=== PATIENT | female | born 1965 | race African-American/Black ===

== ENCOUNTER 2018-02-11 11:53 | Emergency (ER) | END 2018-02-11 14:59 | disposition home or self-care (01) ==

== ENCOUNTER 2018-10-01 10:40 | Emergency (ER) | payer OTHER ==
[~2018-10-01] VITALS: Ht 167.6 cm; Wt 98.9 kg
[~2018-10-01 10:40] MED LIST: CIPR500T4 PO; GABA-526 PO; HYDR-4011 PO; IBUP-1542 PO; NAPR-688 PO; NAPR-985 PO; TRAM50TA2 PO
[2018-10-01 10:43] VITALS: Ht 167.6 cm; Wt 98.9 kg
--- NOTE | 2018-10-01 12:49 | ERD ---
ER Documentation Chief Complaint Chief Complaint chest pressure ; SOB ; swelling on both legs; numbness @ right arm HPI 53-year-old female presents the emergency department complaining of swelling on her legs. Patient states that over the last few days she has had increasing swelling of her lower extremities on her right more than her left. She reports no chest pain or shortness of breath. Of note, the triage note indicates that she did have chest pain or shortness of breath when I asked her about this specifically she states that she does not have that. She reports no fevers, chills, trauma. She reports no other cardiac symptoms, pulmonary symptoms or any other complaints. ROS All systems reviewed and are negative except as per history of present illness. Medications Home Meds Active Scripts Hydrocodone/Acetaminophen ([place] 5-325 Tablet) 1 Each Tablet, 1 TAB PO Q6H PRN for PAIN, #20 TAB Prov:RGACE AMBROSIO 02/11/18 Naproxen* (Naprosyn*) 500 Mg Tablet, 500 MG PO BID PRN for PAIN AND/OR INFLAMMATION, #30 TAB Prov:GRACE AMBROSIO 02/11/18 Ciprofloxacin Hcl* (Ciprofloxacin Hcl*) 500 Mg Tablet, 500 MG PO BID for 7 Days, TAB Prov:GRACE AMBROSIO 02/11/18 Ibuprofen* (Motrin*) 600 Mg Tab, 600 MG PO Q6H PRN for PAIN AND OR ELEVATED TEMP, #30 TAB Prov:NIA VELOZ 06/28/16 Reported Medications Tramadol HCl (Tramadol HCl) 50 Mg Tab, 50 MG PO BID PRN for PAIN, TAB 05/12/14 Naproxen* (Naproxen*) 500 Mg Tablet, 500 MG PO BID PRN for PAIN, TAB 05/12/14 Gabapentin* (Gabapentin*) 600 Mg Tablet, 600 MG PO TID, TAB 05/12/14 Allergies Allergies: Coded Allergies: No Known Allergy (Unverified , 05/12/14) PMhx/Soc Medical and Surgical Hx: pt denies Medical Hx, pt denies Surgical Hx History of Surgery: No Hx Neurological Disorder: No Hx Respiratory Disorders: No Hx Cardiac Disorders: No Hx Psychiatric Problems: No Hx Miscellaneous Medical Probl: Yes (RT SHOULDER/LEG INJURY) Hx Alcohol Use: Yes (OCCASIONAL) Hx Substance Use: No Hx Tobacco Use: No Smoking Status: Never smoker Physical Exam Vitals Vital Signs Date Temp Pulse Resp B/P (MAP) Pulse Ox O2 O2 Flow FiO2 Time Delivery Rate 10/01/18 98.1 90 19 200/84 98 10:43 (122) Physical Exam GENERAL: The patient is well developed and appropriate for usual state of health in no apparent distress HEENT: Pupils equal, round, and reactive to light. EOMI. There is no scleral icterus. NECK: C-spine is soft and supple, there is no meningismus. There is no cervical lymphadenopathy. LUNGS: Clear to auscultation bilaterally. There are no rales, wheezes or rhonchi. HEART: Regular rate and rhythm, no murmurs, clicks, rubs or gallops. ABDOMEN: Soft, non-tender, non-distended. There are bowel sounds in all four quadrants. No rebound or guarding. EXTREMITIES: There is no peripheral cyanosis or edema. No focal swelling or erythema. No Homans sign. No significant swelling NEURO: The patient moves all four extremities with 5/5 strength. Cranial nerves II - XII are intact. Normal gait. Alert and oriented SKIN: There is no apparent rash or petechiae. HEME/LYMPHATIC: There is no evidence of excessive bruising or lymphedema. PSYCHIATRIC: The patient does not appear anxious or depressed. Result Diagram: 10/01/18 1138 10/01/18 1138 Results 24 hrs Laboratory Tests Test 10/01/18 11:38 White Blood Count 6.8 10^3/ul Red Blood Count 4.15 10^6/ul Hemoglobin 11.0 g/dl Hematocrit 33.7 % Mean Corpuscular Volume 81.2 fl Mean Corpuscular Hemoglobin 26.5 pg Mean Corpuscular Hemoglobin Concent 32.6 g/dl Red Cell Distribution Width 13.5 % Platelet Count 383 10^3/UL Mean Platelet Volume 8.9 fl Immature Granulocytes % 0.400 % Neutrophils % 63.6 % Lymphocytes % 25.5 % Monocytes % 8.4 % Eosinophils % 1.8 % Basophils % 0.3 % Nucleated Red Blood Cells % 0.0 /100WBC Immature Granulocytes # 0.030 10^3/ul Neutrophils # 4.3 10^3/ul Lymphocytes # 1.7 10^3/ul Monocytes # 0.6 10^3/ul Eosinophils # 0.1 10^3/ul Basophils # 0.0 10^3/ul Nucleated Red Blood Cells # 0.0 10^3/ul Sodium Level 138 mmol/L Potassium Level 3.5 mmol/L Chloride Level 105 mmol/L Carbon Dioxide Level 28 mmol/L Anion Gap 5 Blood Urea Nitrogen 9 mg/dl Creatinine 0.64 mg/dl Est Glomerular Filtrat Rate mL/min > 60 mL/min Glucose Level 105 mg/dl Calcium Level 8.9 mg/dl Troponin I < 0.012 ng/ml Procedures/MDM Patient was taken to a room, seen and evaluated. Comfort measures were initiated. Diagnostic tests were ordered and reviewed. 3 LEAD RHYTHM STRIP: Normal sinus rhythm without ectopy EK lead EKG reviewed by myself: Normal Sinus Rhythm Normal [place] and intervals No ST elevation, depression, or T wave inversion Impression: Normal EKG RADIOLOGY: Reviewed with the radiologist REEVALUATION: 1245: Diagnostic tests were appreciated. These were discussed with the patient. She remained clinically comfortable and stable and seemed appropriate for discharge. [employer] DECISION MAKIN-year-old female presents the emergency department with lower extremity swelling. Her workup shows no evidence of DVT. She has no evidence of congestive heart failure. Her EKG is low risk. She has no indications of heart problems, liver problems, kidney problems causing the swelling. She has no other significant symptoms and otherwise seems to be stable and appropriate for discharge. Departure Diagnosis: Primary Impression: Swelling Condition: Stable Patient Instructions: Peripheral Edema, Bilateral Additional Instructions: See your doctor for follow-up as discussed. Take a copy of your test results, if appropriate, to this follow-up visit. See your doctor or return here if your symptoms do not improve as expected. At any time, please return to the emergency department for any change or worsening in her symptoms. NIA VELOZ Oct 01, 2018 12:49
[2018-10-01] MEDS ORDERED: HYDR12.58 PO (12:53)
[2018-10-01] MEDS ORDERED: GABA-528 PO (12:54)
[2018-10-01 13:20] VITALS: BP 178/78; PULSE 78; RESP 19
== END 2018-10-01 13:30 | disposition home or self-care (01) ==
LOC: E/R 10:40
DX: M79.89 Other specified soft tissue disorders (principal); R07.89 Other chest pain
CPT/HCPCS: 36415; 71045; 80048; 84484; 85025; 93005; 93971; Z7502

== ENCOUNTER 2018-10-21 11:39 | Emergency (ER) | payer OTHER ==
[~2018-10-21] VITALS: Ht 167.6 cm; Wt 100.0 kg
[~2018-10-21 11:39] MED LIST changes: -CIPR500T4 PO; -GABA-526 PO; +GABA-528 PO; -HYDR-4011 PO; +HYDR12.58 PO; -IBUP-1542 PO; -NAPR-688 PO; -NAPR-985 PO; -TRAM50TA2 PO
[2018-10-21 11:45] VITALS: Ht 167.6 cm; Wt 100.0 kg
[2018-10-21] MEDS ORDERED: POTASSIUM CHLORIDE (SR) 20 MEQ TAB PO STA (15:13)
[2018-10-21] MEDS ORDERED: FURO-110 PO (15:39)
--- NOTE | 2018-10-21 15:42 | ERD ---
ER Documentation Chief Complaint Chief Complaint pt is bib self with c/o bilatt leg swelling , HPI 53-year-old female presents with 3-week history of bilateral feet swelling right greater than left. Patient denies any prolonged immobilization or history of trauma. She has a fevers, shortness of breath, calf swelling. She denies any syncope, hemoptysis. Patient has a history of hypertension. She takes a beta- kadie, hydrochlorothiazide and takes Naprosyn for muscular skeletal pain. ROS All systems reviewed and are negative except as per history of present illness. Medications Home Meds Active Scripts Furosemide* (Lasix*) 20 Mg Tablet, 20 MG PO DAILY, #5 TAB Prov:TOMMIE JACOBO MD 10/21/18 Reported Medications Gabapentin* (Gabapentin*) 800 Mg Tablet, 800 MG PO TID, #90 TAB 10/01/18 Hydrochlorothiazide* (Hydrochlorothiazide*) 12.5 Mg Tablet, 12.5 MG PO DAILY, #30 TAB 10/01/18 Allergies Allergies: Coded Allergies: No Known Allergy (Unverified , 10/01/18) PMhx/Soc History of Surgery: No Hx Neurological Disorder: No Hx Respiratory Disorders: No Hx Cardiac Disorders: Yes (HTN) Hx Psychiatric Problems: No Hx Miscellaneous Medical Probl: Yes (RT SHOULDER/LEG INJURY) Hx Alcohol Use: Yes (OCCASIONAL) Hx Substance Use: No Hx Tobacco Use: No Smoking Status: Never smoker FmHx Family History: No diabetes, No coronary disease, No other Physical Exam Vitals Vital Signs Date Temp Pulse Resp B/P (MAP) Pulse Ox O2 O2 Flow FiO2 Time Delivery Rate 10/21/18 98.3 98 16 176/83 98 11:45 (114) Physical Exam Const: No acute distress Head: Atraumatic Eyes: Normal Conjunctiva ENT: Normal External Ears, Nose and Mouth. Neck: Full range of motion. No meningismus. Resp: Clear to auscultation bilaterally Cardio: Regular rate and rhythm, no murmurs Abd: Soft, non tender, non distended. Normal bowel sounds Skin: No petechiae or rashes Back: No midline or flank tenderness Ext: No cyanosis, or edema. Edema of the right foot. With mild tenderness. No bony deformities,, restricted range of motion or weakness. Neur: Awake and alert Psych: Normal Mood and Affect Result Diagram: 10/21/18 1423 10/21/18 1423 Results 24 hrs Laboratory Tests Test 10/21/18 14:23 White Blood Count 7.6 10^3/ul Red Blood Count 4.25 10^6/ul Hemoglobin 11.2 g/dl Hematocrit 34.5 % Mean Corpuscular Volume 81.2 fl Mean Corpuscular Hemoglobin 26.4 pg Mean Corpuscular Hemoglobin Concent 32.5 g/dl Red Cell Distribution Width 13.5 % Platelet Count 397 10^3/UL Mean Platelet Volume 8.6 fl Immature Granulocytes % 0.400 % Neutrophils % 62.7 % Lymphocytes % 27.2 % Monocytes % 7.2 % Eosinophils % 2.0 % Basophils % 0.5 % Nucleated Red Blood Cells % 0.0 /100WBC Immature Granulocytes # 0.030 10^3/ul Neutrophils # 4.8 10^3/ul Lymphocytes # 2.1 10^3/ul Monocytes # 0.6 10^3/ul Eosinophils # 0.2 10^3/ul Basophils # 0.0 10^3/ul Nucleated Red Blood Cells # 0.0 10^3/ul Sodium Level 142 mmol/L Potassium Level 3.3 mmol/L Chloride Level 105 mmol/L Carbon Dioxide Level 29 mmol/L Anion Gap 8 Blood Urea Nitrogen 11 mg/dl Creatinine 0.73 mg/dl Est Glomerular Filtrat Rate mL/min > 60 mL/min Glucose Level 84 mg/dl Calcium Level 9.5 mg/dl Total Bilirubin 0.2 mg/dl Direct Bilirubin 0.00 mg/dl Indirect Bilirubin 0.2 mg/dl Aspartate Amino Transf (AST/SGOT) 22 IU/L Alanine Aminotransferase (ALT/SGPT) 18 IU/L Alkaline Phosphatase 74 IU/L B-Type Natriuretic Peptide 57 PG/ML Total Protein 7.8 g/dl Albumin 4.0 g/dl Globulin 3.80 g/dl Albumin/Globulin Ratio 1.05 Current Medications Medications Dose Sig/Tamiko Start Time Status Last (Trade) Ordered Route PRN Stop Time Admin Dose Reason Admin Potassium 40 meq ONCE STAT 10/21/18 DC Chloride PO 15:13 (Klor-Con 20) 10/21/18 15:22 Procedures/MDM CBC shows minimum anemia otherwise no acute findings. CMP shows slightly low potassium otherwise no acute abnormalities. Given K-Dur 40 mEq. Right lower extremely Doppler negative for DVT. EKG: Rate/Rhythm: Normal Sinus Rhythm. Rate equals 88 QRS, ST, T-waves: No changes consistent w/ acute ischemia Impression: No evidence of ischemia or arrhythmia Chest X-ray 1V Interpreted by me: Soft Tissue: No acute abnormalities Bones: No acute abnormalities Mediastinum/Cardiac Silhouette/Lungs: No acute abnormalities. Impression- normal 1 view chest x-ray X-ray right foot 3V Interpreted by me: Bones: No fracture Joints: No dislocation Foreign body: None. Impression-normal right foot x-ray Presents with right foot swelling of uncertain etiology for last few weeks. She has no signs of cellulitis, fracture, dislocation. She has no signs of DVT, CHF, additional concerning signs or symptoms or emergent causes of presenting complaints appreciated. She will discharged home with a few days of Lasix, recommendations for elevation, recommendations for discontinuation of Naprosyn as possible side effect, primary care follow-up and return precautions for fevers, redness, shortness of breath, new worsening symptoms. The patient was stable with no new complaints during the ER course. Clinically, there is no current evidence to suggest meningitis, sepsis, acute abdomen, pneumonia, stroke, acute coronary syndrome, pulmonary embolism, aortic dissection or any other emergent condition appearing to require further evaluation or hospitalization. Patient counseled regarding my diagnostic impression and care plan. Prior to discharge all questions answered. Pt agrees with treatment plan and understands strict return precautions. Pt is instructed to follow up with primary care provider within 24-48 hours. Precautionary instructions provided including instructions to return to the ER if not improving or for any worsening or changing symptoms or concerns. Departure Diagnosis: Primary Impression: Pedal edema Condition: Stable Patient Instructions: Peripheral Edema, Unilateral Additional Instructions: All examinations normal today. Uncertain cause of symptoms. Recommend elevation and primary care follow-up. Recheck for redness, fevers, shortness of breath, new worsening symptoms. Recommend discontinue Naprosyn temporarily to see if symptoms improve. TOMMIE JACOBO MD Oct 21, 2018 15:42
[2018-10-21 16:18] VITALS: BP 159/79; PULSE 88; RESP 18
== END 2018-10-21 16:19 | disposition home or self-care (01) ==
LOC: FTE 11:39
DX: R60.0 Localized edema (principal); I10 Essential (primary) hypertension
CPT/HCPCS: 36415; 71045; 73630; 80053; 83880; 85025; 93005; 93971; Z7502; Z7610

== ENCOUNTER 2018-12-16 11:16 | Emergency (ER) | payer OTHER ==
[~2018-12-16] VITALS: Ht 170.2 cm; Wt 99.1 kg
[~2018-12-16 11:16] MED LIST changes: +FURO-110 PO
[2018-12-16 11:27] VITALS: BP 140/80; PULSE 88; RESP 18; Ht 170.2 cm; Wt 99.1 kg
[2018-12-16] MEDS ORDERED: KETOROLAC 60 MG INJ IM STA (12:05)
[2018-12-16] MEDS ORDERED: NAPR-985 PO (12:13)
[2018-12-16] MEDS ORDERED: HYDR-4011 PO (12:13)
[2018-12-16] MEDS ORDERED: MED4DP PO (12:13)
[2018-12-16] MEDS ORDERED: DEXAMETHASONE 10 MG/ML 1 ML INJ IM ONE (12:30)
--- NOTE | 2018-12-16 12:33 | ERD ---
ER Documentation Chief Complaint Chief Complaint Rt arm weak, tingling and pain @ night x4 wks, disc problem HPI 53-year-old female presenting with tingling and numbness down her right arm. Patient states is been going for the last few weeks. She has some pain extending from her right side of her neck. She denies any recent falls. Denies chest pain or shortness of breath. Medical history is hypertension. NKDA. Surgical history denies. Social history denies ROS All systems reviewed and are negative except as per history of present illness. Medications Home Meds Active Scripts Hydrocodone/Acetaminophen ([place] 5-325 Tablet) 1 Each Tablet, 1 TAB PO Q6H PRN for PAIN, #7 TAB Prov:YANCY RODRIGUEZ PA-C 12/16/18 Naproxen* (Naprosyn*) 500 Mg Tablet, 500 MG PO BID PRN for PAIN AND/OR INFLAMMATION, #30 TAB Prov:YANCY RODRIGUEZ PA-C 12/16/18 Methylprednisolone* (Medrol* DOSE PACK) 4 Mg/Dose-Pack Tab.ds.pk, 4 MG PO . DIRECTED, #1 PACKET Prov:YANCY RODRIGUEZ PA-C 12/16/18 Furosemide* (Lasix*) 20 Mg Tablet, 20 MG PO DAILY, #5 TAB Prov:TOMMIE JACOBO MD 10/21/18 Reported Medications Gabapentin* (Gabapentin*) 800 Mg Tablet, 800 MG PO TID, #90 TAB 10/01/18 Hydrochlorothiazide* (Hydrochlorothiazide*) 12.5 Mg Tablet, 12.5 MG PO DAILY, #30 TAB 10/01/18 Allergies Allergies: Coded Allergies: No Known Allergy (Unverified , 10/01/18) PMhx/Soc History of Surgery: No Hx Neurological Disorder: No Hx Respiratory Disorders: No Hx Cardiac Disorders: Yes (HTN) Hx Psychiatric Problems: No Hx Miscellaneous Medical Probl: Yes (RT SHOULDER/LEG INJURY) Hx Alcohol Use: Yes (OCCASIONAL) Hx Substance Use: No Hx Tobacco Use: No Smoking Status: Never smoker FmHx Family History: No diabetes, No coronary disease, No other Physical Exam Vitals Vital Signs Date Temp Pulse Resp B/P (MAP) Pulse Ox O2 O2 Flow FiO2 Time Delivery Rate 6/18/19 98.9 88 18 140/80 97 11:27 (100) Physical Exam GENERAL: The patient is well-appearing, well-nourished, in no acute distress HEENT: Atraumatic. Conjunctivae are pink. Pupils equal, round, and reactive to light. There is no scleral icterus. Tympanic membranes clear bilaterally. Oropharynx clear. NECK: C-spine is soft and supple. There is no meningismus. There is no cervical lymphadenopathy. CHEST: Clear to auscultation bilaterally. There are no rales, wheezes or rhonchi HEART: Regular rate and rhythm. No murmurs, clicks, rubs or gallops. BACK: No midline or flank tenderness. EXTREMITIES: Equal pulses bilaterally. There is no peripheral clubbing, cyanosis or edema. No focal swelling or erythema. Full range of motion. Grossly neurovascularly intact. NEUROLOGIC: Alert and oriented. Cranial nerves II through XII intact. Motor strength in all 4 extremities with 5 out of 5 strength. Sensation grossly intact. Normal speech and gait. SKIN: There is no apparent rash or petechiae. The skin is warm and dry. Results 24 hrs Laboratory Tests Test 12/16/18 12:16 POC Beta HCG, Qualitative NEGATIVE Current Medications Medications Dose Sig/Tamiko Start Time Status Last (Trade) Ordered Route PRN Stop Time Admin Dose Reason Admin Ketorolac 60 mg ONCE STAT 12/16/18 DC 12/16/18 Tromethamine IM 12:05 12:24 (Toradol) 12/16/18 12:06 10 mg ONCE ONCE 12/16/18 12/16/18 Dexamethasone IM 12:30 12:24 (Decadron) 12/16/18 12:31 Procedures/MDM ER course: Decadron and Toradol given in ED. MDM: 53-year-old female presenting with paresthesias down her right arm. Patient strength and exam is non-concerning. I believe patient likely has cervical radiculopathy. I have low suspicion for cardiac emergency. I have low suspicion for vascular insufficiency or deficit. Patient's distal exam to the right upper extremity is within normal limits. Patient is discharged with supportive medications and recommended to follow-up with orthopedist. Patient is told symptoms change or worsen to return immediately to the ER. All questions answered at discharge Departure Diagnosis: Primary Impression: Cervical radiculopathy Condition: Stable Patient Instructions: Radiculopathy, Cervical Additional Instructions: FOLLOW UP WITH YOUR PRIMARY CARE PHYSICIAN TOMORROW.Return to this facility if you are not improving as expected. YANCY RODRIGUEZ PA-C Dec 16, 2018 12:33
== END 2018-12-16 12:34 | disposition home or self-care (01) ==
LOC: FTE 11:16
DX: M54.12 Radiculopathy, cervical region (principal); I10 Essential (primary) hypertension
CPT/HCPCS: 81025; 96372; J1100; J1885; Z7502